=== PATIENT | female | born 1985 ===

== ENCOUNTER 2022-11-28 10:23 | Emergency (ER) | payer SELFPAY ==
[2022-11-28] MEDS ORDERED: Ipratropium/Albuterol 3 ML NEB ONE (11:11)
[2022-11-28] MEDS ORDERED: Dexamethasone 10 MG/ML VIAL ONE (11:11)
== END 2022-11-28 11:24 | disposition home or self-care (01) ==
LOC: ERS 10:23
DX: J45.909 Unspecified asthma, uncomplicated (principal); J44.9 Chronic obstructive pulmonary disease, unspecified; Z79.899 Other long term (current) drug therapy
CPT/HCPCS: 94640; J1100; J7620

== ENCOUNTER 2022-12-03 20:57 | Emergency (ER) | payer SELFPAY ==
[2022-12-03 21:34] LABS: Bilirubin Negative (Negative); Blood, Urine Negative (Negative); Clarity Clear (Clear); Glucose, Urine (Dipstick) Normal (Negative); Ketone, Urine Negative (Negative); Leukocyte Negative Leu/uL (Negative); Nitrite Negative (Negative); Protein, Urine (Dipstick) Negative (Neg-Trace); Specific Gravity, Urine 1.023 (1.002-1.036); Urobilinogen Normal mg/dL (Less than 2); pH, Urine 6.5 (5.0-9.0)
[2022-12-03 21:57] LABS: BHCG - Serum Negative (NEGATIVE); Pregs Control Background? CLEAR/WHITE (CLR/WHITE); Pregs Control Bar Appear? YES (CONTROL BAR)
[2022-12-03 22:03] LABS: #Basophils 0.1 thou/uL (0.0-0.2); #Eosinphils 1.1 thou/uL (0.0-0.7); #Monocytes 0.7 thou/uL (0.11-0.59); #Neutrophils 7.1 thou/uL (1.40-6.50); %Basophils 0.4 % (0.0-1.0); %Eosinophils 8.5 % (0.0-10.0); %Lymphocytes 31.9 % (21.0-51.0); %Monocytes 5.3 % (0.0-10.0); %Neutrophils 53.5 % (42.0-75.0); Hemoglobin 13.7 g/dL (12.0-16.0); Mean Corpuscular HGB CONC 32.2 g/dL (32.0-36.0); Mean Corpuscular Hemoglobin 31.4 pg (27.0-31.0); Mean Corpuscular Volume 97.5 fl (78.0-98.0); Platelet Count 408 10x3/uL (130-400); RBC Distribution Width 12.4 % (11.5-14.5); Red Blood Cell (RBC) Count 4.36 mill/uL (4.20-5.40); White Blood Cell (WBC) Count 13.3 10x3/uL (4.8-10.8)
== END 2022-12-03 22:44 | disposition home or self-care (01) ==
LOC: ERS 20:57
DX: N93.9 Abnormal uterine and vaginal bleeding, unspecified (principal); D72.829 Elevated white blood cell count, unspecified; J45.909 Unspecified asthma, uncomplicated
CPT/HCPCS: 36415; 81003; 84703; 85025; 99284

== ENCOUNTER 2023-01-04 13:39 | Emergency (ER) | payer OTHER, SELFPAY | END 2023-01-04 15:14 | disposition home or self-care (01) | LOC: ERS 13:39 | DX: S93.401A Sprain of unspecified ligament of right ankle, initial encounter (principal); J44.9 Chronic obstructive pulmonary disease, unspecified; X50.9XXA Other and unspecified overexertion or strenuous movements or postures, initial encounter ==